=== PATIENT | male | born 1990 | race Caucasian/White ===

== ENCOUNTER 2016-08-24 06:11 | Emergency (ER) | payer SELFPAY ==
[~2016-08-24] VITALS: Ht 170.2 cm; Wt 86.2 kg
[2016-08-24 06:15] VITALS: BP 156/78
[2016-08-24] MEDS ORDERED: AMOX500C PO (06:33)
[2016-08-24] MEDS ORDERED: IBUP80TA PO (06:33)
[2016-08-24] MEDS ORDERED: NORCO, ANEXSIA 5/325MG TABLET (HYDROcodone/ACETAMINOPHEN) PO ONE (06:45)
[2016-08-24] MEDS ORDERED: AMOXICILLIN 500 MG CAP PO ONE (06:45)
== END 2016-08-24 07:00 | disposition home or self-care (01) ==
LOC: M ED 06:53
DX: K03.9 Disease of hard tissues of teeth, unspecified (principal); K08.9 Disorder of teeth and supporting structures, unspecified; F17.200 Nicotine dependence, unspecified, uncomplicated